=== PATIENT | male | born 1990 | race Caucasian/White ===

== ENCOUNTER 2023-02-08 16:43 | Emergency (ER) | payer BC, OTHER ==
[2023-02-08] MEDS ORDERED: NA CHLORIDE 0.9% 1,000 ML ONE ×2 (17:32→18:55)
[2023-02-08] MEDS ORDERED: ACETAMINOPHEN 500 MG TAB ONE (17:32)
[2023-02-08 17:45] LABS: Absolute Lymphocytes (CBC) 0.4 K/uL (0.7-4.9); Hematocrit 42.5 % (39.6-49.0); MCV 88.1 fL (80-100); MPV 10.2 fL (7.6-11.3); RBC Red Blood Cell Count 4.83 M/uL (4.33-5.43)
[2023-02-08 17:56] LABS: SARS-CoV-2 Antigen Rapid Res Negative (Negative)
[2023-02-08 17:59] LABS: Albumin 3.1 g/dL (3.4-5.0); Bilirubin Total 1.5 mg/dL (0.2-1.0); Protein, Total 6.8 g/dL (6.4-8.2)
[2023-02-08 18:00] LABS: Potassium 3.8 mEq/L (3.5-5.1)
--- NOTE | 2023-02-08 18:24 | RAD REPORT ---
EXAM DESCRIPTION: CTAbdomen Pelvis W Contrast - 02/08/2023 6:17 pm CLINICAL HISTORY: Abdominal pain. fever, diarrhea;Abd pain COMPARISON: No comparisonsNo comparisons TECHNIQUE: Biphasic CT imaging of the abdomen and pelvis was performed with 100 ml non-ionic IV cont rast. All CT scans are performed using dose optimization technique as appropriate and may include automated exposure control or mA/KV adjustment according to patient size. FINDINGS: The lung bases are clear. The liver contains a few small low-density lesions which are too small to fully characterize but like ly benign. Spleen, pancreas, adrenal glands and kidneys are within normal limits. No bowel obstruction, free air, free fluid or abscess. The appendix is normal. No evidence of signi ficant lymphadenopathy. No suspicious bony findings. IMPRESSION: No acute intra-abdominal or pelvic finding.
--- NOTE | 2023-02-08 18:31 | EDPHYS ---
Physician Documentation [facility] Name: Nelson Britt Age: 32 yrs Sex: Male : 1990 Arrival Date: 02/08/2023 Time: 16:43 Bed 6 Private MD: ED Physician Ivan Ojeda HPI: 02/08 17:38 This 32 yrs old Male presents to ER via Ambulatory with complaints of Fever, Nausea, rn diarrhea. 17:38 The patient reports fever. rn 17:39 Onset: The symptoms/episode began/occurred 4 day(s) ago. Modifying factors: there are rn no obvious modifying factors. Associated signs and symptoms: Pertinent positives: diarrhea, Pertinent negatives: altered mental status, chest pain, cough, headache, runny nose, skin rash, shortness of breath, swelling, vomiting. Severity of symptoms: At their worst the symptoms were moderate in the emergency department the symptoms have improved. The patient has not experienced similar symptoms in the past. Pt reports fever for 4 days, diarrhea, non-bloody, no vomiting, diarrhea starting to slow down, but has not resolved. Generalized weakness. No appetite. No abd surgeries. . Historical: - Allergies: 17:00 No Known Allergies; ss - Home Meds: 17:00 None [Active]; ss - PMHx: 17:00 None; ss - PSHx: 17:00 None; ss - Immunization history:: Client reports having NOT received the Covid vaccine. - Social history:: Smoking status: Patient reports use of chewing tobacco. - Family history:: not pertinent. - Hospitalizations: : No recent hospitalization is reported. ROS: 17:39 Constitutional: + fever Eyes: Negative for injury, pain, redness, and discharge, Neck: rn Negative for injury, pain, and swelling, Cardiovascular: Negative for chest pain, palpitations, and edema, Respiratory: Negative for shortness of breath, cough, wheezing, and pleuritic chest pain, Abdomen/GI: + diarrhea Back: Negative for injury and pain, MS/Extremity: Negative for injury and deformity, Skin: Negative for injury, rash, and discoloration, Neuro: Negative for headache, numbness, tingling, and seizure. Exam: 17:39 Constitutional: This is a well developed, well nourished patient who is awake, alert, rn and in no acute distress. Head/Face: Normocephalic, atraumatic. ENT: dry MM Cardiovascular: Regular rate and rhythm. No pulse deficits. Respiratory: No increased work of breathing, no retractions or nasal flaring. Abdomen/GI: Soft, non-tender Skin: Warm, dry, no cellulitis MS/ Extremity: Pulses equal, no cyanosis. Neuro: Awake and alert, GCS 15 Vital Signs: 16:59 BP 110 / 75; Pulse 96; Resp 16; Temp 101.4(O); Pulse Ox 98% on R/A; Weight 113.4 kg; ss Height 6 ft. 2 in. ; Pain 6/10; 17:00 BP 116 / 73; Pulse 96; Resp 16; Pulse Ox 98% on R/A; vg1 17:30 BP 116 / 71; Pulse 92; Resp 16; Pulse Ox 99% on R/A; vg1 18:42 BP 89 / 54; Pulse 76; Resp 16; Temp 97.6(O); Pulse Ox 99% ; vg1 18:43 BP 87 / 57; Pulse 68; Resp 16; Pulse Ox 96% on R/A; vg1 18:47 BP 101 / 60; Pulse 94; Resp 16; Pulse Ox 99% on R/A; vg1 20:51 BP 97 / 59; Pulse 86; Resp 16; Temp 99.1(O); Pulse Ox 100% on R/A; kd3 22:32 BP 98 / 62; Pulse 85; Resp 19; Pulse Ox 98% on R/A; kd3 22:39 BP 102 / 63; Pulse 86; Resp 16; Pulse Ox 97% on R/A; kd3 16:59 Body Mass Index 32.10 (113.40 kg, 187.96 cm) ss 16:59 Pain Scale: Adult ss MDM: 17:08 Patient medically screened. rn 18:27 Differential diagnosis: viral Infection, bacterial infection, gastroenteritis. Data rn reviewed: vital signs, nurses notes, lab test result(s), radiologic studies, CT scan, and as a result, I will discharge patient. Counseling: I had a detailed discussion with the patient and/or guardian regarding: the historical points, exam findings, and any diagnostic results supporting the discharge/admit diagnosis, lab results, radiology results, the need for outpatient follow up, to return to the emergency department if symptoms worsen or persist or if there are any questions or concerns that arise at home. Special discussion: I discussed with the patient/guardian in detail that at this point there is no indication for admission to the hospital. It is understood, however, that if the symptoms persist or worsen the patient needs to return immediately for re-evaluation. ED course: CT without acute findings, Flu B+, feels better, fever down, labs consistent with transient neutropenia and thrombocytopenia that can happen with Flu, especially with Flu B. Will dc home with prn meds and explained need to repeat bloodwork in 10-14 days to show resolution. Return precautions given and understood. . 02/08 17:17 Order name: CBC with Diff; Complete Time: 21:39 rn 02/08 17:17 Order name: CMP; Complete Time: 18:08 rn 02/08 17:17 Order name: Lipase; Complete Time: 18:08 rn 02/08 17:17 Order name: Flu; Complete Time: 18:08 rn 02/08 17:17 Order name: SARS RAPID; Complete Time: 18:08 rn 02/08 19:53 Order name: Manual Differential; Complete Time: 21:39 EDMS 02/08 17:17 Order name: CT Abd/Pelvis - IV Contrast Only; Complete Time: 18:26 rn 02/08 17:17 Order name: IV Saline Lock; Complete Time: 17:17 rn 02/08 17:17 Order name: Labs collected and sent; Complete Time: 17:17 rn Administered Medications: 17:25 Drug: NS 0.9% IV 1000 ml Route: IV; Rate: 1 bolus; Site: right antecubital; vg1 20:42 Follow up: IV Status: Completed infusion kd3 17:27 Drug: Acetaminophen PO 1000 mg Route: PO; vg1 19:06 Follow up: Response: Temperature is decreased vg1 18:50 Drug: NS 0.9% IV 1000 ml Route: IV; Rate: 1000 ml; Site: right antecubital; vg1 20:42 Follow up: IV Status: Completed infusion kd3 18:52 Drug: Oseltamivir PO 75 mg Route: PO; vg1 20:42 Follow up: Response: No adverse reaction kd3 20:42 Drug: Albumin IVPB 25 grams Volume: 100 ml; Route: IVPB; Site: right antecubital; kd3 22:49 Follow up: IV Status: Completed infusion kd3 20:42 Drug: D5-1/2 NS with KCl IV 20 mEq/L 1000 ml Route: IV; Rate: 150 ml/hr; Site: right kd3 antecubital; 22:49 Follow up: IV Status: Completed infusion kd3 20:42 Drug: Ibuprofen PO 800 mg Route: PO; kd3 22:49 Follow up: Response: No adverse reaction kd3 20:42 Drug: Diphenoxylate-Atropine PO 2 tabs Route: PO; kd3 22:49 Follow up: Response: No adverse reaction kd3 22:29 Drug: Albumin IVPB 25 grams Volume: 100 ml; Route: IVPB; Site: right antecubital; ll3 22:49 Follow up: IV Status: Completed infusion kd3 Disposition Summary: 02/08/23 18:30 Discharge Ordered Location: Home rn Problem: new rn Symptoms: have improved rn Condition: Stable rn Diagnosis - Influenza due to other identified influenza virus with gastrointestinal rn manifestations - Dehydration rn - Neutropenia, unspecified rn - Thrombocytopenia, unspecified rn Followup: rn - With: Private Physician - When: As needed - Reason: Recheck today's complaints, Re-evaluation by your physician Discharge Instructions: - Discharge Summary Sheet rn - Dehydration, Adult rn - Neutropenia rn - Influenza, Adult, [id number] rn Forms: - Medication Reconciliation Form rn - Thank You Letter rn - Antibiotic mother baby rn - Prescription Opioid Use rn - Work release form 3 Prescriptions: - ondansetron 4 mg Oral Tablet,disintegrating - take 1 tablet by ORAL route every 8 hours As needed; 20 tablet; Refills: 0, rn Product Selection Permitted - Tamiflu 75 mg Oral Capsule - take 1 tablet by ORAL route every 12 hours for 5 days; 10 tablet; Refills: 0, rn Product Selection Permitted Signatures: Dispatcher [employer] Sav Gonzales MD MD rn Blanchard, Shelby RN Bertha Tyler, RN RN [email or web address] Dennise Muniz, RN RN ll3 Teresa Sanchez, RN RN kd3 Ivan Ojeda MD MD sp4
--- NOTE | 2023-02-08 18:31 | ER ---
Nurse's Notes [facility] Name: Nelson Britt Age: 32 yrs Sex: Male : 1990 Arrival Date: 02/08/2023 Time: 16:43 Bed 6 Private MD: Diagnosis: Influenza due to other identified influenza virus with gastrointestinal manifestations;Dehydration;Neutropenia, unspecified;Thrombocytopenia, unspecified Presentation: 02/08 16:59 Chief complaint: Patient states: Nausea, diarrhea and fever that began Friday. ss Tylenol 1000 mg last taken at 0530 this morning. Coronavirus screen: Client denies travel out of the [place] in the last 14 days. Ebola Screen: Patient denies exposure to infectious person. Patient denies travel to an Ebola-affected area in the 21 days before illness onset. Initial Sepsis Screen: Does the patient meet any 2 criteria? No. Patient's initial sepsis screen is negative. Does the patient have a suspected source of infection? No. Patient's initial sepsis screen is negative. Risk Assessment: Do you want to hurt yourself or someone else? Patient reports no desire to harm self or others. Onset of symptoms was February 05, 2023. 16:59 Method Of Arrival: Ambulatory ss 16:59 Acuity: SHYLA 3 ss Historical: - Allergies: 17:00 No Known Allergies; ss - Home Meds: 17:00 None [Active]; ss - PMHx: 17:00 None; ss - PSHx: 17:00 None; ss - Immunization history:: Client reports having NOT received the Covid vaccine. - Social history:: Smoking status: Patient reports use of chewing tobacco. - Family history:: not pertinent. - Hospitalizations: : No recent hospitalization is reported. Screenin:01 Abuse screen: Denies threats or abuse. Denies injuries from another. Nutritional ss screening: No deficits noted. Tuberculosis screening: Never had TB. 17:18 [facility] ED Fall Risk Assessment (Adult) History of falling in the last 3 months, vg1 including since admission No falls in past 3 months (0 pts) Confusion or Disorientation No (0 pts) Intoxicated or Sedated No (0 pts) Impaired Gait No (0 pts) Mobility Assist Device Used No (0 pt) Altered Elimination No (0 pt) Score/Fall Risk Level 0 - 2 = Low Risk Oriented to surroundings, Maintained a safe environment, Educated pt \T\ family on fall prevention, incl call for assistance when getting out of bed, Assessed \T\ reinforced patient's understanding of fall precautions. Assessment: 17:18 General: Appears in no apparent distress. uncomfortable, Behavior is cooperative. Pain: vg1 Complains of pain in abdomen Pain currently is 2 out of 10 on a pain scale. Pain began 2-3 days ago. Neuro: Level of Consciousness is awake, alert, obeys commands, Oriented to person, place, time, situation. Cardiovascular: Patient's skin is warm and dry. Respiratory: Airway is patent Respiratory effort is even, unlabored. GI: Abdomen is round Abd is soft and non tender X 4 quads. Reports diarrhea, nausea, Patient currently denies vomiting. : No signs and/or symptoms were reported regarding the genitourinary system. EENT: No signs and/or symptoms were reported regarding the EENT system. Derm: Skin is pink, warm \T\ dry. Musculoskeletal: Circulation, motion, and sensation intact. 18:15 Reassessment: Patient appears in no apparent distress at this time. Patient and/or vg1 family updated on plan of care and expected duration. Pain level reassessed. Patient is alert, oriented x 3, equal unlabored respirations, skin warm/dry/pink. 18:40 Reassessment: Pt up for d/c, currently waiting for IV fluids to complete. vg1 18:55 Reassessment: BP 87/54 \T\ 1842 and 87/57 \T\ 1843; Provider notified of vitals. vg 1 Vital Signs: 16:59 BP 110 / 75; Pulse 96; Resp 16; Temp 101.4(O); Pulse Ox 98% on R/A; Weight 113.4 kg; ss Height 6 ft. 2 in. ; Pain 6/10; 17:00 BP 116 / 73; Pulse 96; Resp 16; Pulse Ox 98% on R/A; vg1 17:30 BP 116 / 71; Pulse 92; Resp 16; Pulse Ox 99% on R/A; vg1 18:42 BP 89 / 54; Pulse 76; Resp 16; Temp 97.6(O); Pulse Ox 99% ; vg1 18:43 BP 87 / 57; Pulse 68; Resp 16; Pulse Ox 96% on R/A; vg1 18:47 BP 101 / 60; Pulse 94; Resp 16; Pulse Ox 99% on R/A; vg1 20:51 BP 97 / 59; Pulse 86; Resp 16; Temp 99.1(O); Pulse Ox 100% on R/A; kd3 22:32 BP 98 / 62; Pulse 85; Resp 19; Pulse Ox 98% on R/A; kd3 22:39 BP 102 / 63; Pulse 86; Resp 16; Pulse Ox 97% on R/A; kd3 16:59 Body Mass Index 32.10 (113.40 kg, 187.96 cm) ss 16:59 Pain Scale: Adult ss ED Course: 16:45 Patient arrived in ED. ts1 16:48 Moises Glasgow PA is PHCP. cp 16:48 Sav Anthony MD is Attending Physician. cp 16:57 Bertha Ba RN is Primary Nurse. vg1 17:00 Triage completed. ss 17:00 Arm band placed on right wrist. ss 17:01 Patient has correct armband on for positive identification. Placed in gown. Bed in low ss position. Call light in reach. Side rails up X 1. Pulse ox on. NIBP on. 17:05 Inserted saline lock: 20 gauge in right antecubital area, using aseptic technique. zm Blood collected. 17:07 Sav Anthony MD is Attending Physician. rn 17:18 No provider procedures requiring assistance completed. vg1 17:37 SARS RAPID Sent. vg1 17:37 Flu Sent. vg1 18:19 CT Abd/Pelvis - IV Contrast Only In Process Unspecified. EDMS 19:33 Primary Nurse role handed off by Bertha Ba RN wm 19:41 Teresa Sanchez RN is Primary Nurse. kd3 19:50 Attending Physician role handed off by Sav Anthony MD sp4 19:50 Ivan Ojeda MD is Attending Physician. sp4 22:49 IV discontinued, intact, bleeding controlled, No redness/swelling at site. Pressure kd3 dressing applied. Administered Medications: 17:25 Drug: NS 0.9% IV 1000 ml Route: IV; Rate: 1 bolus; Site: right antecubital; vg1 20:42 Follow up: IV Status: Completed infusion kd3 17:27 Drug: Acetaminophen PO 1000 mg Route: PO; vg1 19:06 Follow up: Response: Temperature is decreased vg1 18:50 Drug: NS 0.9% IV 1000 ml Route: IV; Rate: 1000 ml; Site: right antecubital; vg1 20:42 Follow up: IV Status: Completed infusion kd3 18:52 Drug: Oseltamivir PO 75 mg Route: PO; vg1 20:42 Follow up: Response: No adverse reaction kd3 20:42 Drug: Albumin IVPB 25 grams Volume: 100 ml; Route: IVPB; Site: right antecubital; kd3 22:49 Follow up: IV Status: Completed infusion kd3 20:42 Drug: D5-1/2 NS with KCl IV 20 mEq/L 1000 ml Route: IV; Rate: 150 ml/hr; Site: right kd3 antecubital; 22:49 Follow up: IV Status: Completed infusion kd3 20:42 Drug: Ibuprofen PO 800 mg Route: PO; kd3 22:49 Follow up: Response: No adverse reaction kd3 20:42 Drug: Diphenoxylate-Atropine PO 2 tabs Route: PO; kd3 22:49 Follow up: Response: No adverse reaction kd3 22:29 Drug: Albumin IVPB 25 grams Volume: 100 ml; Route: IVPB; Site: right antecubital; ll3 22:49 Follow up: IV Status: Completed infusion kd3 Medication: 17:18 VIS not applicable for this client. vg1 Outcome: 18:30 Discharge ordered by . rn 22:32 Condition: stable kd3 22:48 Discharged to home ambulatory. kd3 22:48 Discharge instructions given to patient, Instructed on discharge instructions, Demonstrated understanding of instructions, Prescriptions given X 2. 22:49 Patient left the ED. kd3 Signatures: Dispatcher [employer] EDMS Sav Anthony MD MD rn Blanchard, Shelby, RN RN ss Moises Glasgow PA PA cp Garcia, Victoria, RN RN vg1 Gisselle Arenas Lynsea, RN RN ll3 Teresa Sanchez RN RN kd3 Michaela Meyer Sergey, MD MD sp4 Lovely Godwin, PAS PAS ts1
[2023-02-08] MEDS ORDERED: OSELTAMIVIR 75 MG CAP PO ONE (18:55)
[2023-02-08 19:52] LABS: Blood Morphology Comment NOT SEEN (NOT SEEN); Platelet Estimate DECR
[2023-02-08] MEDS ORDERED: DIPHENOX/ATROP SULF 1 TAB PO ONE (20:29)
[2023-02-08] MEDS ORDERED: IBUPROFEN 400 MG TAB ONE (20:29)
[2023-02-08] MEDS ORDERED: D5.45NS W/KCL 20MEQ 1,000 ML IV ONE (20:30)
[2023-02-08] MEDS ORDERED: ALBUMIN HUMAN 25% 100 ML IV ONE ×2 (20:30→22:17)
[2023-02-08] MEDS ORDERED: ALBUMIN HUMAN 25% 50 ML IV ONE (21:26)
[2023-02-08 23:24] VITALS: TEMP 99.1
[2023-02-08 23:28] VITALS: BP 102/63; O2SAT 97
== END 2023-02-08 22:49 | disposition home or self-care (01) ==
LOC: ER 16:43
DX: J10.2 Influenza due to other identified influenza virus with gastrointestinal manifestations (principal); E86.0 Dehydration; D70.9 Neutropenia, unspecified; D69.6 Thrombocytopenia, unspecified; Z20.822 Contact with and (suspected) exposure to COVID-19
CPT/HCPCS: 96365; 96361; 85025; 36415; 83690; 80053; 87804 ×2; 74177; 99285; 96366; 87811; Q9967; P9047 ×3; J7030 ×2

== ENCOUNTER 2023-02-11 13:42 | Inpatient (IN) | payer BC ==
[2023-02-11 14:58] LABS: Absolute Lymphocytes (CBC) 0.8 K/uL (0.7-4.9); Hematocrit 37.5 % (39.6-49.0); Lymphocytes % 18.6 % (15.3-44.8); MPV 10.3 fL (7.6-11.3); RBC Red Blood Cell Count 4.26 M/uL (4.33-5.43)
[2023-02-11 15:01] LABS: Protime INR 1.59
[2023-02-11 15:07] LABS: Albumin 3.1 g/dL (3.4-5.0); Potassium 3.4 mEq/L (3.5-5.1); Protein, Total 6.6 g/dL (6.4-8.2)
[2023-02-11] MEDS ORDERED: ALBUTEROL 2.5 MG/3 ML NEB SOL ONE (15:13)
[2023-02-11] MEDS ORDERED: ONDANSETRON 4 MG/2 ML VIAL ONE (15:13)
[2023-02-11] MEDS ORDERED: NA CHLORIDE 0.9% 2,000 ML ONE (15:14)
[2023-02-11] MEDS ORDERED: IPRATROPIUM BROM 0.5MG/2.5ML ONE (15:14)
[2023-02-11] MEDS ORDERED: IBUPROFEN 400 MG TAB ONE (15:15)
[2023-02-11 15:25] LABS: SARS-CoV-2 Antigen Rapid Res Negative (Negative)
--- NOTE | 2023-02-11 16:26 | RAD REPORT ---
EXAM DESCRIPTION: Supa Single View02/11/2023 4:06 pm CLINICAL HISTORY: Shortness of breath COMPARISON: none FINDINGS: The lungs appear clear of acute infiltrate. The heart is normal size IMPRESSION: No acute abnormalities displayed
--- NOTE | 2023-02-11 17:32 | RAD REPORT ---
EXAM DESCRIPTION: CT - Chest For Pe Angio - 02/11/2023 5:14 pm CLINICAL HISTORY: sob COMPARISON: None. TECHNIQUE: Dynamically enhanced axial 3 mm thick images of the chest were obtained during administra tion of 100 mL Isovue 370 IV contrast. Coronal and oblique reconstruction images were generated and r eviewed. Exam utilizes a protocol for optimal evaluation of pulmonary arterial tree. Maximum intensity projections 3D imaging was utilized All CT scans are performed using dose optimization technique as appropriate and may include automated exposure control or mA/KV adjustment according to patient size. FINDINGS: A pulmonary embolus is not seen. A thoracic aortic aneurysm is not noted. Small bilateral pleural effusions. A pericardial effusion is not seen. Mild to moderate right and mild left tree-in-bud opacities and ground-glass opacities. IMPRESSION: Negative for a pulmonary embolism. Mild to moderate right and mild left tree-in-bud and ground-glass opacities may indicate a viral or a typical pneumonia
--- NOTE | 2023-02-11 17:35 | RAD REPORT ---
EXAM DESCRIPTION: CT - Abdomen Pelvis W Contrast - 02/11/2023 5:14 pm CLINICAL HISTORY: Abdominal pain COMPARISON: January 2023 TECHNIQUE: Computed axial tomography of the abdomen pelvis was obtained. 100 cc Isovue-300 was admin istered intravenously. Oral contrast was not requested which limits evaluation of bowel and appendix All CT scans are performed using dose optimization technique as appropriate and may include automated exposure control or mA/KV adjustment according to patient size. FINDINGS: Spleen measures 17 centimeters. Liver has a homogeneous density. Pancreas, adrenals kidneys unremarkable There is no evidence of diverticulitis. Normal appendix Trace amount of free fluid within the pelvis IMPRESSION: Moderate splenomegaly
[2023-02-11] MEDS ORDERED: CEFTRIAXONE 1000 MG/VIAL ONE (18:19)
[2023-02-11] MEDS ORDERED: NA CHLORIDE 0.9% 250 ML ONE (18:20)
[2023-02-11] MEDS ORDERED: NA CHLORIDE 0.9% 50 ML ONE (18:20)
[2023-02-11] MEDS ORDERED: AZITHROMYCIN 500 MG INJ IVPB ONE (18:20)
--- NOTE | 2023-02-11 18:26 | ER ---
Nurse's Notes [facility] Name: Nelson Britt Age: 32 yrs Sex: Male : 1990 Arrival Date: 02/11/2023 Time: 13:42 Bed 7 Private MD: Diagnosis: Pneumonia, unspecified organism;Hypoxemia;Influenza due to other identified influenza virus with other respiratory manifestations;Sepsis, unspecified organism Presentation: 02/11 14:09 Chief complaint: Patient states: high fever since Friday , cough since this morning iw , sore throat , no abd pain , vomited once , was seen here Friday for same thing, had CT and fluids and was sent home with Tamiflu , was appositive for Flu B. Coronavirus screen: At this time, the client does not indicate any symptoms associated with coronavirus-19. Ebola Screen: Patient negative for fever greater than or equal to 101.5 degrees Fahrenheit, and additional compatible Ebola Virus Disease symptoms Patient denies exposure to infectious person. Patient denies travel to an Ebola-affected area in the 21 days before illness onset. No symptoms or risks identified at this time. Initial Sepsis Screen: Does the patient meet any 2 criteria? HR > 90 bpm. Does the patient have a suspected source of infection?. Risk Assessment: Do you want to hurt yourself or someone else? Patient reports no desire to harm self or others. Onset of symptoms was February 05, 2023. 14:09 Method Of Arrival: Ambulatory iw 14:09 Acuity: SHYLA 2 iw Triage Assessment: 21:54 General: Appears comfortable. Pain: Denies pain. rv Historical: - Allergies: 14:12 No Known Allergies; iw - Home Meds: 14:12 None [Active]; iw - PMHx: 14:12 None; iw - PSHx: 14:12 right knee; iw - Immunization history:: Adult Immunizations up to date. - Social history:: Smoking status: . Screenin:16 [facility] ED Fall Risk Assessment (Adult) Score/Fall Risk Level 0 - 2 = Low Risk ll1 Oriented to surroundings, Maintained a safe environment, Educated pt \T\ family on fall prevention, incl call for assistance when getting out of bed, Hourly rounding (assess needs \T\ fall precautionary measures) done. Abuse screen: Denies threats or abuse. Nutritional screening: No deficits noted. Tuberculosis screening: No symptoms or risk factors identified. Assessment: 14:47 General: Appears uncomfortable, ill, Behavior is calm, cooperative, appropriate for ll1 age. General: Reports chills for fever for feeling ill for fatigue for. Neuro: Reports weakness. Respiratory: Reports shortness of breath. GI: Reports diarrhea, nausea, vomiting. 15:16 Reassessment: No changes from previously documented assessment. Patient and/or family ll1 updated on plan of care and expected duration. Pain level reassessed. Patient is alert, oriented x 3, equal unlabored respirations, skin warm/dry/pink. 15:39 Reassessment: No changes from previously documented assessment. Patient and/or family ll1 updated on plan of care and expected duration. Pain level reassessed. 17:39 Reassessment: No changes from previously documented assessment. Patient is alert, bp oriented x 3, equal unlabored respirations, skin warm/dry/pink. 18:41 Reassessment: No changes from previously documented assessment. Patient and/or family ll1 updated on plan of care and expected duration. Pain level reassessed. 20:32 General: attempted to call report. nurse not available. will attempt again. lg3 Vital Signs: 14:09 BP 94 / 57; Pulse 107; Resp 19; Temp 100.4; Pulse Ox 88% on R/A; Weight 113.4 kg; iw Height 6 ft. 2 in. ; Pain 6/10; 15:18 BP 105 / 73; Pulse 100; Resp 20; Pulse Ox 99% on 4 lpm NC; ll1 16:01 BP 103 / 55; Pulse 96; Resp 18; Pulse Ox 96% on 3 lpm NC; cm10 17:39 BP 95 / 52; Pulse 95; Resp 16; Pulse Ox 95% ; bp 18:45 Pulse Ox 87% on R/A; ll1 18:48 Temp 98.9(O); Pulse Ox 95% on 3 lpm NC; ll1 20:31 BP 122 / 70; Pulse 88; Resp 17 S; Pulse Ox 98% on 3 lpm NC; lg3 14:09 Body Mass Index 32.10 (113.40 kg, 187.96 cm) iw 14:09 Pain Scale: Adult iw 18:45 O2 sat 87-90% RA ll1 ED Course: 13:42 Patient arrived in ED. rg4 13:45 Moises Glasgow PA is PHCP. cp 13:45 Camron Hess MD is Attending Physician. cp 14:12 Triage completed. iw 14:12 Arm band placed on. iw 14:38 Sarah Rogers, RN is Primary Nurse. ll1 15:00 Inserted saline lock: 20 gauge in right antecubital area, using aseptic technique. bp Blood collected. 15:16 Patient has correct armband on for positive identification. Bed in low position. Call ll1 light in reach. Client placed on continuous cardiac and pulse oximetry monitoring. NIBP monitoring applied. 16:08 XRAY Chest (1 view) In Process Unspecified. EDMS 17:15 CT Chest For PE Angio In Process Unspecified. EDMS 17:15 CT Abd/Pelvis - IV Contrast Only In Process Unspecified. EDMS 18:25 Aamir Anthony MD is Hospitalizing Provider. cp 21:39 No provider procedures requiring assistance completed. Patient admitted, IV remains in lg3 place. intact, No redness/swelling at site. 21:42 [place] Screen Profile Sent. lg3 21:42 Acetaminophen Sent. lg3 Administered Medications: 15:17 Drug: NS 0.9% IV (30 ml/kg) 30 ml/kg Route: IV; Rate: bolus; Site: left antecubital; ll1 18:40 Follow up: Response: No adverse reaction; IV Status: Completed infusion; IV Intake: ll1 2000ml 15:17 Drug: DuoNeb Nebulize (2.5 mg - 0.5 mg) 3 ml Route: Nebulizer; ll1 15:39 Follow up: Response: No adverse reaction ll1 15:17 Drug: Ondansetron IVP 4 mg Route: IVP; Site: left antecubital; ll1 15:38 Follow up: Response: No adverse reaction; Nausea is decreased ll1 15:17 Drug: Ibuprofen PO 800 mg Route: PO; ll1 18:40 Follow up: Response: No adverse reaction ll1 18:40 Drug: Rocephin IV 1 grams Route: IV; Rate: calculated rate; Site: left antecubital; ll1 19:16 Follow up: Response: No adverse reaction; IV Status: Completed infusion; IV Intake: [id number] 19:15 Drug: Zithromax IVPB 500 mg Route: IVPB; Infused Over: 1 hrs; Site: right antecubital; lg3 21:38 Follow up: Response: No adverse reaction; IV Status: Completed infusion; IV Intake: lg3 250ml Medication: 15:16 VIS not applicable for this client. ll1 Intake: 18:40 IV: 2000ml; Total: 2000ml. ll1 19:16 IV: 50ml; Total: 2050ml. lg3 21:38 IV: 250ml; Total: 2300ml. lg3 Outcome: 18:26 Decision to Hospitalize by Provider. cp 21:39 Admitted to Med/surg accompanied by tech, via wheelchair, room 223, Report called to [facility] 21:39 Condition: stable 21:39 Instructed on the need for admit, Demonstrated understanding of instructions. 21:54 Patient left the ED. rv Signatures: Dispatcher [employer] EDFatimah Peres, RN RN iw Moises Glasgow PA PA cp Elisha Ba rg4 Bentley Agustin RN TYLER bp Rambo Jenkins RN TYLER rv Traci Hernandes RN RN lg3 Sarah Rogers, RN TYLER ll1 Yara Meyer, RN RN cm10 Corrections: (The following items were deleted from the chart) 14:12 14:09 Pulse 107bpm; Resp 19bpm; Pulse Ox 94%; Temp 100.4F; 113.4 kg; Height 6 ft. 2 iw in.; BMI: 32.1; Pain 6/10, Adult; iw 14:14 14:09 BP 94 / 57; Pulse 107bpm; Resp 19bpm; Pulse Ox 94%; Temp 100.4F; 113.4 kg; Height iw 6 ft. 2 in.; BMI: 32.1; Pain 6/10, Adult; iw 14:19 14:09 Acuity: SHYLA 3 iw iw
--- NOTE | 2023-02-11 18:27 | EDPHYS ---
Physician Documentation [facility] Name: Nelson Britt Age: 32 yrs Sex: Male : 1990 Arrival Date: 02/11/2023 Time: 13:42 Bed 7 Private MD: ED Physician Camron Hess HPI: 02/11 14:30 This 32 yrs old Male presents to ER via Ambulatory with complaints of Fever, Cough. cp 14:30 The patient reports fever, with an emergency department temperature of 100.4 degrees cp Fahrenheit. 14:30 Associated signs and symptoms: Pertinent positives: cough, shortness of breath, cp Pertinent negatives: abdominal pain, chest pain, diarrhea, vomiting. The patient has been recently seen at the [facility] Emergency Department, last week, diagnosed with Influenza B and prescribed tamiflu. Historical: - Allergies: 14:12 No Known Allergies; iw - Home Meds: 14:12 None [Active]; iw - PMHx: 14:12 None; iw - PSHx: 14:12 right knee; iw - Immunization history:: Adult Immunizations up to date. - Social history:: Smoking status: . ROS: 14:35 Constitutional: Positive for fever. cp 14:35 Eyes: Negative for injury, pain, redness, and discharge. cp 14:35 ENT: Negative for drainage from ear(s), ear pain, sore throat, difficulty swallowing, difficulty handling secretions. 14:35 Cardiovascular: Negative for chest pain. 14:35 Respiratory: Positive for cough, shortness of breath. 14:35 Abdomen/GI: Negative for abdominal pain, vomiting, diarrhea, constipation. 14:35 Neuro: Negative for altered mental status, headache. 14:35 All other systems are negative. Exam: 14:40 Constitutional: The patient appears in no acute distress, alert, awake, cp non-diaphoretic, non-toxic, well developed, well nourished. 14:40 Head/Face: Normocephalic, atraumatic. cp 14:40 Eyes: Periorbital structures: appear normal, Conjunctiva: normal, no exudate, no injection, Sclera: no appreciated abnormality, Lids and lashes: appear normal, bilaterally. 14:40 ENT: External ear(s): are unremarkable, Nose: is normal, Mouth: Lips: moist, Oral mucosa: pink and intact, moist, Posterior pharynx: Airway: no evidence of obstruction, patent, swelling, is not appreciated, erythema, that is mild. 14:40 Neck: ROM/movement: is normal, is supple, without pain, no range of motions limitations, no meningismus, no nuchal rigidity. 14:40 Chest/axilla: Inspection: normal. 14:40 Cardiovascular: Rate: tachycardic, Rhythm: regular, Edema: is not appreciated, JVD: is not appreciated. 14:40 Respiratory: mild respiratory distress is noted, Respirations: labored breathing, is not present, shallow respirations, that is mild, Breath sounds: decreased breath sounds, that are mild, throughout, stridor, is not appreciated, wheezing: is not appreciated. 14:40 Abdomen/GI: Inspection: abdomen appears normal, Bowel sounds: active, all quadrants, Palpation: abdomen is soft and non-tender, in all quadrants. 14:40 Back: pain, is absent, ROM is normal. 14:40 Neuro: Orientation: to person, place \T\ time. Mentation: is normal, Cerebellar function: is grossly normal, Motor: moves all fours, strength is normal, Sensation: is normal. 15:00 ECG was reviewed by the Attending Physician. cp Vital Signs: 14:09 BP 94 / 57; Pulse 107; Resp 19; Temp 100.4; Pulse Ox 88% on R/A; Weight 113.4 kg; iw Height 6 ft. 2 in. ; Pain 6/10; 15:18 BP 105 / 73; Pulse 100; Resp 20; Pulse Ox 99% on 4 lpm NC; ll1 16:01 BP 103 / 55; Pulse 96; Resp 18; Pulse Ox 96% on 3 lpm NC; cm10 17:39 BP 95 / 52; Pulse 95; Resp 16; Pulse Ox 95% ; bp 18:45 Pulse Ox 87% on R/A; ll1 18:48 Temp 98.9(O); Pulse Ox 95% on 3 lpm NC; ll1 20:31 BP 122 / 70; Pulse 88; Resp 17 S; Pulse Ox 98% on 3 lpm NC; lg3 14:09 Body Mass Index 32.10 (113.40 kg, 187.96 cm) iw 14:09 Pain Scale: Adult iw 18:45 O2 sat 87-90% RA ll1 MDM: 14:21 Patient medically screened. cp 15:00 Differential diagnosis: viral Infection, bacterial infection, bronchitis, pneumonia cp gastroenteritis, meningitis, sepsis. 18:10 Data reviewed: vital signs, nurses notes, lab test result(s), EKG, radiologic studies, cp CT scan, plain films. 18:25 Management of patient was discussed with the following: Hospitalist: Tod Matute NP cp will admit patient after discussion. 18:25 Independent interpretation of the following test(s) in the Emergency Department EKG: cp See my EKG interpretation above. Post IV fluid administration reassessment for Sepsis: Client prescribed 30 mL/kg IVF. Heart: Regular rate/rhythm noted. Lungs: Noted to be clear bilaterally. Current vital signs reviewed: blood pressure remains the 90's. Counseling: I had a detailed discussion with the patient and/or guardian regarding: the historical points, exam findings, and any diagnostic results supporting the discharge/admit diagnosis, lab results, the need for further work-up and treatment in the hospital. 02/11 14:19 Order name: Blood Culture Adult (2) 02/11 14:19 Order name: CBC with Diff; Complete Time: 15:04 02/11 15:05 Interpretation: Normal except: WBC 4.20; RBC 4.26; HGB 12.5; HCT 37.5; PLT 115; YOEL% cp 75.9. 02/11 14:19 Order name: CMP; Complete Time: 16:30 02/11 16:30 Interpretation: Normal except: NA 133; K 3.4; GFR 80; AST 141; ALT 165; BILIT 2.0; CA cp 8.0; ALB 3.1; A/G 0.9. 02/11 14:19 Order name: Lactate w/ 2H reflex if indic.; Complete Time: 16:30 02/11 14:19 Order name: Protime (+inr); Complete Time: 15:04 02/11 14:19 Order name: Ptt, Activated; Complete Time: 15:04 02/11 14:56 Order name: Procalcitonin; Complete Time: 16:30 cp 02/11 15:25 Order name: SARS-COV-2 Antigen Rapid; Complete Time: 16:30 EDMS 02/11 20:00 Order name: Acetaminophen la1 02/11 20:04 Order name: [place] Screen Profile mitul 02/11 15:16 Order name: XRAY Chest (1 view); Complete Time: 16:30 cp 02/11 16:32 Order name: CT Chest For PE Angio; Complete Time: 18:04 cp 02/11 18:04 Interpretation: Report reviewed. 02/11 16:32 Order name: CT Abd/Pelvis - IV Contrast Only; Complete Time: 18:04 02/11 18:05 Interpretation: Report reviewed. 02/11 14:19 Order name: EKG; Complete Time: 14:20 iw 02/11 14:19 Order name: Accucheck; Complete Time: 15:01 iw 02/11 14:19 Order name: Cardiac monitoring; Complete Time: 15:00 iw 02/11 14:19 Order name: EKG - Nurse/Tech; Complete Time: 15:00 iw 02/11 14:19 Order name: IV Saline Lock - Large Bore; Complete Time: 14:37 iw 02/11 14:19 Order name: Labs collected and sent; Complete Time: 14:37 iw 02/11 14:19 Order name: O2 Per Protocol; Complete Time: 14:37 iw 02/11 14:19 Order name: O2 Sat Monitoring; Complete Time: 14:37 iw 02/11 14:19 Order name: Vital Signs; Complete Time: 14:37 iw EC:00 Rate is 95 beats/min. Rhythm is regular. MS interval is normal. QRS interval is normal. cp QT interval is normal. T waves are Inverted in lead aVR. Interpreted by me. Reviewed by me. Administered Medications: 15:17 Drug: NS 0.9% IV (30 ml/kg) 30 ml/kg Route: IV; Rate: bolus; Site: left antecubital; ll1 18:40 Follow up: Response: No adverse reaction; IV Status: Completed infusion; IV Intake: ll1 2000ml 15:17 Drug: DuoNeb Nebulize (2.5 mg - 0.5 mg) 3 ml Route: Nebulizer; ll1 15:39 Follow up: Response: No adverse reaction ll1 15:17 Drug: Ondansetron IVP 4 mg Route: IVP; Site: left antecubital; ll1 15:38 Follow up: Response: No adverse reaction; Nausea is decreased ll1 15:17 Drug: Ibuprofen PO 800 mg Route: PO; ll1 18:40 Follow up: Response: No adverse reaction ll1 18:40 Drug: Rocephin IV 1 grams Route: IV; Rate: calculated rate; Site: left antecubital; ll1 19:16 Follow up: Response: No adverse reaction; IV Status: Completed infusion; IV Intake: [id number] 19:15 Drug: Zithromax IVPB 500 mg Route: IVPB; Infused Over: 1 hrs; Site: right antecubital; lg3 21:38 Follow up: Response: No adverse reaction; IV Status: Completed infusion; IV Intake: lg3 250ml Disposition Summary: 02/11/23 18:26 Hospitalization Ordered Hospitalization Status: Inpatient Admission cp Provider: Aamir Anthony cp Location: Telemetry/MedSurg (Inpatient) cp Condition: Stable cp Problem: new cp Symptoms: have improved cp Bed/Room Type: Standard cp Room Assignment: 223(02/11/23 19:23) Diagnosis - Pneumonia, unspecified organism cp - Hypoxemia cp - Influenza due to other identified influenza virus with other respiratory cp manifestations - Sepsis, unspecified organism cp Forms: - Medication Reconciliation Form cp - SBAR form cp Signatures: Dispatcher [employer] EDMS America Lozada RN RN mw Fatimah Dumont RN RN iw Moises Glasgow PA PA cp Rambo Jenkins RN RN Traci Hernandes RN RN lg3 Sarah Rogers RN RN ll1 Corrections: (The following items were deleted from the chart) 15:28 14:57 SARS-COV-2 RT PCR+[id number].BRZ ordered. EDMS EDMS 18:34 18:26 Severe sepsis without septic shock cp cp 19:23 18:26 cp mw
--- NOTE | 2023-02-11 20:02 | P.HP ---
Certification for Inpatient Patient admitted to: Inpatient With expected LOS: >2 Midnights Patient will require the following post-hospital care: None Practitioner: I am a practitioner with admitting privileges, knowledge of patient current condition, hospital course, and medical plan of care. Services: Services provided to patient in accordance with Admission requirements found in Title 42 Section 412.3 of the Code of Federal Regulations Patient History Date of Service: 02/11/23 Reason for admission: Pneumonia, hypoxia History of Present Illness: 32-year-old otherwise healthy male presents the emergency department chief complaint of shortness of breath/cough. He was diagnosed with influenza B on 02/08/2023 prescribe Tamiflu and discharged. He reports his symptoms been getting worse since then, he was noted to be mildly hypoxic on room air saturating 87% on room air. He is evaluated further in the emergency department his labs are significant for white blood cell count 4.2 hemoglobin 12.5 platelets 115 sodium 133 potassium 3.4 T. bili 2.0 AST 141 ALT 165 procalcitonin 0.35 CTA of the chest was performed to rule out pulmonary believes him which showed a mild to moderate right and mild left tree-in-bud and groundglass opacity viral/atypical pneumonia. CT of the abdomen pelvis was also performed which showed moderate splenomegaly. Patient denies any abdominal pain in regards to his LFTs this is likely from his consistent use of acetaminophen. He reports has been taking approximately 4 g of Tylenol daily for the last 6 days to control his fever/chills. He was given ibuprofen for fever in the ED. Will need to be admitted for pneumonia, hypoxia, influenza. - Past Medical/Surgical History -: None -: none Psychosocial/ Personal History: Employed in [employer]. - Family History Family History: Reviewed- Non-Contributory - Social History Smoking Status: Never smoker Alcohol use: Yes CD- Drugs: No Caffeine use: Yes Place of Residence: Home Review of Systems 10-point ROS is otherwise unremarkable General: Fever, Chills Respiratory: Cough, Shortness of Breath Physical Examination - Physical Exam General: Alert, In no apparent distress, Oriented x3 HEENT: Atraumatic, PERRLA, Mucous membr. moist/pink, EOMI, Sclerae nonicteric Neck: Supple, 2+ carotid pulse no bruit, No LAD, Without JVD or thyroid abnormality Respiratory: Clear to auscultation bilaterally, Normal air movement Cardiovascular: Regular rate/rhythm, Normal S1 S2 Capillary refill: <2 Seconds Gastrointestinal: Normal bowel sounds, No tenderness Musculoskeletal: No tenderness Integumentary: No rashes Neurological: Normal speech, Normal strength at 5/5 x4 extr, Normal tone, Normal affect - Studies Laboratory Data (last 24 hrs) 02/11/23 14:40: PT 17.5 H, INR 1.59, APTT 36.2 02/11/23 14:40: Sodium 133 L, Potassium 3.4 L, BUN 17, Creatinine 1.23, Glucose 96, Total Bilirubin 2.0 H, AST 141 H, ALT 165 H, Alkaline Phosphatase 59 02/11/23 14:40: WBC 4.20 L, Hgb 12.5 L, Hct 37.5 L, Plt Count 115 L Assessment and Plan - Plan Assessment: Acute hypoxic respiratory failure secondary to bilateral pneumoniainfluenza B Severe sepsis secondary to above-likely viral Elevated LFT/INR likely secondary to acetaminophen use/sepsis Plan: Acute hypoxic respiratory failure secondary to bilateral pneumoniainfluenza B Continue supplemental oxygen as needed, will cover with vancomycin/Levaquin/Tamiflu. Incentive spirometry, as needed nebulizer treatments. Blood cultures obtained. Severe sepsis secondary to above-likely viral SIRS criteria are present, source of infection confirmed with CT bilateral pneumonia, INR is elevated which is likely multifactorial but does meet criteria for severe sepsis. There is concern for possible superimposed bacterial infection as well. Elevated LFT/INR likely secondary to acetaminophen use/sepsis We will obtain ultrasound of the liver, no abdominal pain or tenderness noted on exam. We will measure acetaminophen level, patient reports taking approximately 4-6 grams of Tylenol daily for the last 6 days, last dose was today around noon. Acetaminophen level pending. DVT PPX:Lovenox Code status:Full Discharge Plan: Home Plan to discharge in: 72 Hours - Advance Directives Does patient have a Living Will: No Does patient have a Durable POA for Healthcare: No - Code Status/Comfort Care Code Status Assessed: Yes (Full code) Critical Care: No Time Spent Managing Pts Care (In Minutes): 55
[2023-02-11] MEDS ORDERED: BENZONATATE 100 MG CAP PO PRN (21:42)
[2023-02-11] MEDS ORDERED: VANCOMYCIN 1 GM in NA CHLORIDE 0.9% 250 ML IVPB SCH (21:42)
[2023-02-11] MEDS ORDERED: D5W IV SCH (22:00)
[2023-02-11] MEDS ORDERED: ACETYLCYSTEINE IV SCH ×2 (22:00→23:00)
[2023-02-11] MEDS ORDERED: D5W IV ONE (22:05)
[2023-02-11] MEDS ORDERED: ACETYLCYSTEINE IV ONE (22:05)
[2023-02-11] MEDS: Ringers Lactate 1,000 ML IV SCH (22:28)
[2023-02-11] MEDS: OSELTAMIVIR 75 MG CAP PO SCH (22:28)
[2023-02-11] MEDS ORDERED: WATER IV SCH (23:00)
[2023-02-11] MEDS ORDERED: VANCOMYCIN 2 GM in NA CHLORIDE 0.9% 500 ML IVPB ONE (23:00)
[2023-02-11] MEDS ORDERED: DEXTROSE 5% IV SCH (23:00)
[2023-02-11] MEDS ORDERED: Acetylcysteine 6000mg/30mL IV ONE (23:07)
[2023-02-11] MEDS ORDERED: D5W 250 ML IV ONE (23:08)
[2023-02-11 23:14] VITALS: BMI 32.1
[2023-02-12] MEDS ORDERED: ONDANSETRON 4 MG/2 ML VIAL IV PRN (00:34)
[2023-02-12] MEDS ORDERED: ACETYLCYSTEINE IV SCH ×3 (03:00→12:00)
[2023-02-12] MEDS ORDERED: D5W IV SCH ×3 (03:00→12:00)
[2023-02-12 03:44] LABS: Protime INR 1.45
[2023-02-12 03:46] LABS: Absolute Lymphocytes (CBC) 0.7 K/uL (0.7-4.9); Hematocrit 32.4 % (39.6-49.0); MPV 9.9 fL (7.6-11.3); RBC Red Blood Cell Count 3.73 M/uL (4.33-5.43)
[2023-02-12 04:07] LABS: Albumin 2.5 g/dL (3.4-5.0); Bilirubin Total 1.6 mg/dL (0.2-1.0); Potassium 3.2 mEq/L (3.5-5.1); Protein, Total 5.7 g/dL (6.4-8.2)
[2023-02-12] MEDS ORDERED: IBUPROFEN 400 MG TAB PO ONE (05:10)
[2023-02-12] MEDS: Ringers Lactate 1,000 ML IV SCH ×3 (05:42→21:42)
[2023-02-12] MEDS: ALBUTEROL 2.5 MG/3 ML NEB SOL NEB PRN ×2 (06:39→17:57)
--- NOTE | 2023-02-12 07:37 | RAD REPORT ---
EXAM DESCRIPTION: US - Liver Only - 02/12/2023 1:10 am CLINICAL HISTORY: Elevated LFT COMPARISON: No comparisons FINDINGS: The liver demonstrates diffuse fatty infiltration.No focal liver lesion or intrahepatic bi liary dilatation.No evidence of portal vein thrombosis. Common bile duct measures 4 mm. There is small gallbladder stone. Spleen is enlarged measuring 16 cm. IMPRESSION: Diffuse fatty liver is present. No pathologic biliary dilatation. Cholelithiasis. Mild splenomegaly.
[2023-02-12] MEDS ORDERED: ACETYLCYSTEINE IV ONE (08:00)
[2023-02-12] MEDS ORDERED: D5W IV ONE (08:00)
[2023-02-12] MEDS ORDERED: VANCOMYCIN 2 GM in NA CHLORIDE 0.9% 500 ML IVPB SCH (09:00)
[2023-02-12] MEDS ORDERED: Levofloxacin 750mg IV 750 MG/150 ML BAG IV SCH (09:00)
[2023-02-12] MEDS ORDERED: POTASSIUM CL SA 10 MEQ TAB PO ONE ×2 (09:00→22:00)
[2023-02-12] MEDS: OSELTAMIVIR 75 MG CAP PO SCH ×2 (09:54→20:14)
[2023-02-12] MEDS: ENOXAPARIN 40 MG/0.4 ML SQ SCH (09:54)
[2023-02-12] MEDS: CEFTRIAXONE 1,000 MG in NA CHLORIDE 0.9% 50 ML IVPB SCH (09:54)
[2023-02-12] MEDS: AZITHROMYCIN IV 500 MG in NA CHLORIDE 0.9% 250 ML IVPB SCH (09:55)
--- NOTE | 2023-02-12 12:17 | P.CNS ---
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 - Social History Alcohol use: Yes CD- Drugs: No Caffeine use: Yes Place of Residence: Home Review of Systems 10-point ROS is otherwise unremarkable Physical Examination Temp Pulse Resp BP Pulse Ox 97.6 F 92 H 18 91/56 L 97 02/12/23 08:00 02/12/23 08:00 02/12/23 08:00 02/12/23 08:00 02/12/23 08:00 General: Alert, In no apparent distress, Oriented x3 HEENT: Atraumatic Neck: Supple Respiratory: Clear to auscultation bilaterally Cardiovascular: No edema, Regular rate/rhythm Laboratory Data (last 24 hrs) 02/11/23 14:40: PT 17.5 H, INR 1.59, APTT 36.2 02/11/23 14:40: Sodium 133 L, Potassium 3.4 L, BUN 17, Creatinine 1.23, Glucose 96, Total Bilirubin 2.0 H, AST 141 H, ALT 165 H, Alkaline Phosphatase 59 02/11/23 14:40: WBC 4.20 L, Hgb 12.5 L, Hct 37.5 L, Plt Count 115 L - Problems (1) Atypical pneumonia Current Visit: Yes Status: Acute Plan: Patient is 32 years of age previously healthy no significant past medical history admitted with fever chills some nonspecific changes on the CT scan most likely he has an atypical pneumonia of levofloxacin changed to Rocephin and Zithromax IV abnormal LFTs would also be consistent with an atypical process example mycoplasma pneumonia function tests are improving DC vancomycin once afebrile oxygenation satisfactory discharge home on cephalosporin and Zithromax
[2023-02-12 14:17] LABS: Hepatitis A Ab Total Nonreactive (Nonreactive); Hepatitis B Core Ab, Total Nonreactive (Nonreactive); Hepatitis B Core IgM Nonreactive (Nonreactive); Hepatitis B Surface Ab - Quant 4.56 mIU/mL (<8.0); Hepatitis B surface AG Interp. Nonreactive (Nonreactive); Hepatitis C Virus Ab Nonreactive (Nonreactive)
--- NOTE | 2023-02-12 14:23 | P.CNS ---
Date of Consult: 02/12/23 Reason for Consult: influenza, PNA Chief Complaint: Pneumonia, hypoxia History of Present Illness: Patient is a 32 yo male with no significant medical history who presented to the ED with complaints of SOB and cough. He originally presented to the ED on 02/08 during which he was diagnosed with influenze B and sent home on Tamiflu. He returned to the ED due to worsening symptoms and fever and was found to be mildly hypoxic. He reports he has been taking about 4g tylenol daily to control his fever. ALT 165, AST 141, WBC 4.2, Plt 115. CTA Chest was obtained which showed Mild to moderate right and mild left tree-in-bud and ground-glass opacities may indicate a viral or atypical pneumonia. CT abdomen revealed moderate splenomegaly. "Negative for a pulmonary embolism. Mild to moderate right and mild left tree-in-bud and ground-glass opacities may indicate a viral or atypical pneumonia." Allergies No Known Allergies Allergy (Unverified 02/11/23 21:40) Home medications list reviewed: Yes - Past Medical/Surgical History -: None -: none Psychosocial/ Personal History: Employed in [employer]. - Social History Smoking Status: Never smoker Alcohol use: Yes CD- Drugs: No Caffeine use: Yes Place of Residence: Home Review of Systems 10-point ROS is otherwise unremarkable General: Fever Respiratory: Shortness of Breath Physical Examination Temp Pulse Resp BP Pulse Ox 98.1 F 83 16 125/72 98 02/12/23 12:00 02/12/23 12:00 02/12/23 12:00 02/12/23 12:00 02/12/23 12:00 General: Alert, In no apparent distress, Oriented x3 HEENT: Atraumatic, Normocephalic Neck: Supple, JVD not distended Respiratory: Clear to auscultation bilaterally, Normal air movement, Other (4 L NC) Cardiovascular: No edema, Normal pulses, Regular rate/rhythm Gastrointestinal: Normal bowel sounds, Soft and benign, No tenderness Musculoskeletal: No clubbing, No swelling Integumentary: No rashes, No breakdown Neurological: Normal gait, Normal speech, Normal tone, Normal affect Laboratory Data - Reviewed Microbiology Data - Reviewed Imagings Data: - CTA Chest 02/11: "Negative for a pulmonary embolism. Mild to moderate right and mild left tree-in-bud and ground-glass opacities may indicate a viral or atypical pneumonia." - CT abdomen 02/11: "Moderate splenomegaly" - Liver ultrasound 02/12: "Diffuse fatty liver is present. No pathologic biliary dilatation. Cholelithiasis. Mild splenomegaly." Conclusions/Impression: Problem List Influenza B Atypical Pneumonia Leukopenia Thrombocytopenia Influenza B Atypical Pneumonia - On Tamiflu - On Azithromycin and Ceftriaxone (started 02/12) - Pulmonology on case - Patient is currently on 4L NC. Patient with leukopenia and thrombocytopenia - Originally presented to ED with WBC 1.4 and plt 99 - Tmax 101.3 this morning - Patient has been experiencing high fevers for the past 7+ days. Patient reports temps up to 104 at home and was taking large doses of tylenol to reduce fever. - Agreeable to run viral panel including HIV, CMV, hepatitis Recommendations - Influeza B: Continue tamiflu x 5 days - Atypical pneumonia: Continue antibiotics per pulmonology - follow up with lab/culture reports - Supportive care and nutritional support as needed - Monitor WBC and fever trends ID will follow patient as needed. Case discussed with Rg Kovacs. Thank you Dr. Crowley for this interesting consult.
[2023-02-12] MEDS ORDERED: CEFTRIAXONE 1,000 MG in NA CHLORIDE 0.9% 50 ML IVPB SCH (18:00)
--- NOTE | 2023-02-12 18:21 | P.PN ---
Subjective Date of Service: 02/12/23 Chief Complaint: Pneumonia, hypoxia This morning, he reports the his symptoms are moderately controlled. He has been having intermittent fevers and chills overnight. Pulse oximetry readings were low on admission, and he was on 5 L nasal cannula this morning. He reports shortness of breath and dry cough. He denies any chest pain or palpitations. Review of Systems 10-point ROS is otherwise unremarkable General: Chills, Sweats Respiratory: Cough, Shortness of Breath Physical Examination - Vital Signs Temperature: 100.5 F Blood Pressure: 121/81 Pulse: 90 Respirations: 18 Pulse Ox (%): 100 - Physical Exam General: Alert, In no apparent distress, Oriented x3 HEENT: Atraumatic, Sclerae nonicteric Neck: JVD not distended Respiratory: Diminished, Rhonchi/gurgles (scattered) Cardiovascular: No edema, Regular rate/rhythm, Normal S1 S2, No gallops, No rubs, No murmurs Gastrointestinal: Normal bowel sounds, Soft and benign, Non-distended, No tenderness, No rebound, No guarding Musculoskeletal: No clubbing Integumentary: No rashes Neurological: Normal speech, Normal affect Assessment And Plan - Plan # Acute Hypoxic Respiratory Failure - likely secondary to Influenza B/Atypical Pneumonia - Evaluation thus far: - Procalcitonin = 0.35 - Influenza B = positive - Mononuclosis, COVID-19 = negative - Chest x-ray = "no acute abnormalities displayed" - CT chest angiogram = "negative for a pulmonary embolism. Mild to moderate right and mild left tree-in-bud and ground-glass opacities may indicate a viral or atypical pneumonia." - Management plan: - Consulted Pulmonary Medicine - recommendations appreciated - Consulted Respiratory Therapy - Supplemental oxygen to maintain SpO2 > 92% - Continue vancomycin (to cover MRSA in the setting of influenza) + levofloxacin - Continue oseltamivir - PRN benzonatate, guaifenesin - Encouraged incentive spirometry - Isolation precautions # Severe Viral Sepsis likely secondary to Influenza B/Atypical Pneumonia He met SIRS criteria based on temperature > 100.9 F, HR > 90 bpm, and WBC < 4,000 and the suspected source is pulmonary. Severe sepsis is suspected due to concern for tissue hypoperfusion/organ dysfunction based on coagulopathy (INR > 1.5). - Consulted Infectious Diseases and spoke with Dr. Mack - recommendations appreciated - Recommended hepatitis panel, HIV, CMV - verbal consent obtained for HIV testing - Sepsis order set was initiated - Initial Lactate was 1.4 - Blood cultures drawn - Broad spectrum antibiotics started: Vancomycin + Levofloxacin - In regards to fluids: - 30 mL/kg of IV fluids was not administered given SBP > 90, MAP > 65, lactic acid < 4 # Suspected Acute Hepatitis vs Acute Drug-Induced Liver Injury # Fatty Liver Disease with Splenomegaly # Cholelithiasis Differential diagnoses include, but are not limited to, alcoholic hepatitis (denies alcohol use), drug-induced liver injury, infectious hepatitis (i.e. Hepatitis A, B, or C, HIV). He reports taking acetaminophen 1000 mg [id number] x 5 days. - Gastroenterology consulted and LOCOMOTIVE ENGINEER Juju spoke with Dr. Chambers - recommendations appreciated - S/P acetylcysteine - Radiology: - CT abdomen/pelvis = "moderate splenomegaly" - US liver = "diffuse fatty liver is present. No pathologic biliary dilatation. Cholelithiasis. Mild splenomegaly." - Avoid hepatotoxic medications - Limit Acetaminophen - Acetaminophen level = <2.5 - Ordered HAV IgM, HBsAg, HbsAb, HBcAb, and HCV serologies - Ordered HIV testing - Verbal permission for testing obtained Pepe Crowley M.D.
[2023-02-12] MEDS ORDERED: guaiFENesin 100 MG/5 ML UCUP PO PRN (18:28)
--- NOTE | 2023-02-12 19:10 | EKG ---
Test Date: 2023-02-11 Test Time: 14:52:48 Python Django Developer: BP MEASUREMENT RESULTS: Intervals: Rate: 95 ME: 146 QRSD: 88 QT: 340 QTc: 427 [place]: P: 19 ME: 146 QRS: 47 T: 34 INTERPRETIVE STATEMENTS: Sinus rhythm with occasional premature ventricular complexes Otherwise normal ECG No previous ECG available for comparison Electronically Signed On 02-12-23 19:08:56 CDT by Rivera Javier
[2023-02-13 03:40] LABS: Protime INR 1.53
[2023-02-13 03:41] LABS: Lymphocytes % 29.1 % (15.3-44.8); MCV 87.2 fL (80-100); MPV 9.3 fL (7.6-11.3); RBC Red Blood Cell Count 3.56 M/uL (4.33-5.43)
[2023-02-13 04:05] LABS: Albumin 2.4 g/dL (3.4-5.0); Bilirubin Direct 0.7 mg/dL (0-0.2); Bilirubin Total 1.2 mg/dL (0.2-1.0); Potassium 3.8 mEq/L (3.5-5.1); Protein, Total 5.7 g/dL (6.4-8.2)
[2023-02-13] MEDS ORDERED: SODIUM CHLORIDE 0.9% 10ML INJ IV PRN (05:04)
[2023-02-13] MEDS: Ringers Lactate 1,000 ML IV SCH ×4 (05:29→21:42)
[2023-02-13] MEDS ORDERED: POTASSIUM CL SA 10 MEQ TAB PO ONE ×2 (06:00→20:00)
[2023-02-13] MEDS ORDERED: PANTOPRAZOLE 40 MG INJ IVP ONE (06:00)
[2023-02-13 06:42] VITALS: O2SAT 96
[2023-02-13] MEDS: CEFTRIAXONE 1,000 MG in NA CHLORIDE 0.9% 50 ML IVPB SCH (08:59)
[2023-02-13] MEDS: ENOXAPARIN 40 MG/0.4 ML SQ SCH (08:59)
[2023-02-13] MEDS: AZITHROMYCIN IV 500 MG in NA CHLORIDE 0.9% 250 ML IVPB SCH (08:59)
[2023-02-13] MEDS: OSELTAMIVIR 75 MG CAP PO SCH ×2 (08:59→21:20)
--- NOTE | 2023-02-13 09:09 | P.PN ---
Date of Service: 02/13/23 Chief Complaint: SOB, fever Subjective: Improving. Patient seen and examined at bedside. O2 requirements to 1.5L from 4L NC. Denies any new or worsening complaints. Reports feeling better. No acute events reported overnight. Physical Examination Temp Pulse Resp BP Pulse Ox 98.6 F 132 H 19 121/81 97 02/13/23 08:00 02/13/23 08:00 02/13/23 08:00 02/13/23 08:00 02/13/23 08:00 General: Alert, In no apparent distress, Oriented x3 HEENT: Atraumatic, Normocephalic Neck: Supple, JVD not distended Respiratory: Clear to auscultation bilaterally, Normal air movement, 2 L NC Cardiovascular: No edema, Normal pulses, Regular rate/rhythm Gastrointestinal: Normal bowel sounds, Soft and benign, No tenderness Musculoskeletal: No clubbing, No swelling Integumentary: No rashes, No breakdown Neurological: Normal gait, Normal speech, Normal tone, Normal affect Laboratory Data - Reviewed Microbiology Data - Reviewed Imagings Data: - CT abdomen 02/11: "Moderate splenomegaly" - Liver ultrasound 02/12: "Diffuse fatty liver is present. No pathologic biliary dilatation. Cholelithiasis. Mild splenomegaly." Medication List: Reviewed Assessment and Plan Problem List Influenza B Atypical Pneumonia Leukopenia Thrombocytopenia, resolved Influenza B Atypical Pneumonia - On Tamiflu - On Azithromycin and Ceftriaxone (started 02/12) - Pulmonology on case - XR Chest 02/11: "The lungs appear clear of acute infiltrate. The heart is normal size. No acute abnormalities displayed." - CTA Chest 02/11: "Negative for a pulmonary embolism. Mild to moderate right and mild left tree-in-bud and ground-glass opacities may indicate a viral or atyp ical pneumonia." Patient has been experiencing high fevers for the past 7+ days. Patient reports temps up to 104 at home and was taking large doses of tylenol to reduce fever. LFTs trending down. Originally presented to ED with leukopenia WBC 1.4 and thrombocytopenia plt 99. - Tmax 100.5 F within the past 24 hours. - Agreeable to run viral panel including HIV, CMV, hepatitis. Pending. - Blood cultures 02/11: No growth to date - Nasal swab pending - Leukopenia (WBC 3.5) Recommendations - Influenza B: Continue Tamiflu x 5 days (started 02/11) - Atypical pneumonia: Continue Azithromycin and Ceftriaxonefor now (started 02/12) - follow up with labs and nasal culture reports - Supportive care and nutritional support as needed - Monitor WBC and fever trends ID will follow patient as needed. Case discussed with Isabelle Kovacs
--- NOTE | 2023-02-13 17:18 | P.PN ---
Subjective Date of Service: 02/13/23 Chief Complaint: Pneumonia, hypoxia This morning, he appears to be improving. He is still requiring supplemental oxygen, but his oxygen requirements have improved from 5 L yesterday to 2.5 L this morning. He had one low grade fever of 100.5 F overnight. He reports shortness of breath and dry cough. He denies any chest pain or palpitations. Review of Systems 10-point ROS is otherwise unremarkable General: Chills Respiratory: Cough, Shortness of Breath Physical Examination - Vital Signs Temperature: 99.3 F Blood Pressure: 119/77 Pulse: 97 Respirations: 21 Pulse Ox (%): 98 Assessment And Plan - Plan - Physical Exam General: Alert, In no apparent distress, Oriented x3 HEENT: Atraumatic, Sclerae nonicteric Neck: JVD not distended Respiratory: Diminished, Rhonchi/gurgles (scattered) Cardiovascular: No edema, Regular rate/rhythm, No murmurs Gastrointestinal: Normal bowel sounds, Soft, Non-distended, No tenderness Musculoskeletal: No clubbing Integumentary: No rashes Neurological: Normal speech, Normal affect # Acute Hypoxic Respiratory Failure - likely secondary to Influenza B/Atypical Pneumonia - Evaluation thus far: - Procalcitonin = 0.35 - Influenza B = positive - Mononuclosis, COVID-19 = negative - Chest x-ray = "no acute abnormalities displayed" - CT chest angiogram = "negative for a pulmonary embolism. Mild to moderate right and mild left tree-in-bud and ground-glass opacities may indicate a viral or atypical pneumonia." - Management plan: - Consulted Pulmonary Medicine - recommendations appreciated - Consulted Respiratory Therapy - Supplemental oxygen to maintain SpO2 > 92% - Continue vancomycin (to cover MRSA in the setting of influenza) + levofloxacin -> switched to ceftriaxone + azithromycin per Pulm - MRSA nasal swab requested - Continue oseltamivir - PRN benzonatate, guaifenesin - Encouraged incentive spirometry - Isolation precautions # Severe Viral Sepsis likely secondary to Influenza B/Atypical Pneumonia He met SIRS criteria based on temperature > 100.9 F, HR > 90 bpm, and WBC < 4,000 and the suspected source is pulmonary. Severe sepsis is suspected due to concern for tissue hypoperfusion/organ dysfunction based on coagulopathy (INR > 1.5). - Consulted Infectious Diseases and spoke with Dr. Giron - recommendations appreciated - Recommended hepatitis panel, HIV, CMV - verbal consent obtained for HIV testing - All tests negative thus far, except CMV (pending) - Sepsis order set was initiated - Initial Lactate was 1.4 - Blood cultures drawn - Broad spectrum antibiotics started: Vancomycin + Levofloxacin -> switched to ceftriaxone + azithromycin per Pulm - In regards to fluids: - 30 mL/kg of IV fluids was not administered given SBP > 90, MAP > 65, lactic acid < 4 # Suspected Acute Hepatitis vs Acute Drug-Induced Liver Injury # Fatty Liver Disease with Splenomegaly # Cholelithiasis Differential diagnoses include, but are not limited to, alcoholic hepatitis (denies alcohol use), drug-induced liver injury, infectious hepatitis (i.e. Hepatitis A, B, or C, HIV). He reports taking acetaminophen 1000 mg [id number] x 5 days. - Gastroenterology consulted and FLEX O WRITER OPERATOR Juju spoke with Dr. Chambers - recommendations appreciated - S/P acetylcysteine - Radiology: - CT abdomen/pelvis = "moderate splenomegaly" - US liver = "diffuse fatty liver is present. No pathologic biliary dilatation. Cholelithiasis. Mild splenomegaly." - Avoid hepatotoxic medications - Limit Acetaminophen - Acetaminophen level = <2.5 - Ordered HAV IgM, HBsAg, HbsAb, HBcAb, and HCV serologies = negative - May benefit from HBV vaccine as an outpatient - Ordered HIV testing = negative - Verbal permission for testing obtained Pepe Crowley M.D.
[2023-02-14] MEDS: Ringers Lactate 1,000 ML IV SCH (04:00)
[2023-02-14 06:10] LABS: Absolute Lymphocytes (CBC) 1.2 K/uL (0.7-4.9); Hematocrit 33.1 % (39.6-49.0); Lymphocytes % 25.9 % (15.3-44.8); MCV 87.3 fL (80-100); MPV 9.6 fL (7.6-11.3)
[2023-02-14 06:15] LABS: Protime INR 1.54
[2023-02-14 06:28] LABS: Albumin 2.5 g/dL (3.4-5.0); Bilirubin Direct 0.5 mg/dL (0-0.2); Potassium 3.8 mEq/L (3.5-5.1); Protein, Total 5.6 g/dL (6.4-8.2)
--- NOTE | 2023-02-14 06:54 | ECHO ---
HEIGHT: 6 ft 2 in WEIGHT: 250 lb 0 oz DATE OF STUDY: 02/13/[address]: Pepe Crowley MD 2-DIMENSIONAL: YES M.MODE: YES DOPPLER: YES COLOR FLOW: YES TDS: PORTABLE: YES DEFINITY: BUBBLE STUDY: DIAGNOSIS: SUSPECT PERICARDIAL EFFUSION CARDIAC HISTORY: CATHERIZATION: NO SURGERY: NO PROSTHETIC VALVE: NO PACEMAKER: NO MEASUREMENTS (cm) DIASTOLIC (NORMALS) SYSTOLIC (NORMALS) IVSd 1.0 (0.6-1.2) LA Diam 2.1 (1.9-4.0) LVEF 69% LVIDd 5.1 (3.5-5.7) LVIDs 3.1 (2.0-3.5) %FS 39% LVPWd 1.1 (0.6-1.2) Ao Diam 3.1 (2.0-3.7) 2 DIMENSIONAL ASSESSMENT: RIGHT ATRIUM: NORMAL LEFT ATRIUM: NORMAL RIGHT VENTRICLE: NORMAL LEFT VENTRICLE: NORMAL TRICUSPID VALVE: NORMAL MITRAL VALVE: TRACE MITRAL REGURGITATION PULMONIC VALVE: NORMAL AORTIC VALVE: NORMAL PERICARDIAL EFFUSION: NONE AORTIC ROOT: NORMAL LEFT VENTRICULAR WALL MOTION: NORMAL DOPPLER/COLOR FLOW: TRACE MITRAL REGURGITATION COMMENTS: 1. NORMAL LEFT VENTRICULAR EJECTION FRACTION 60-65% 2. NORMAL WALL MOTION 3. TRACE MITRAL REGURGITATION 4. NO PERICARDIAL EFFUSION IS SEEN TECHNOLOGIST: TEMI LOFTON
[2023-02-14 08:15] VITALS: BP 128/74; TEMP 97.4
[2023-02-14] MEDS: CEFTRIAXONE 1,000 MG in NA CHLORIDE 0.9% 50 ML IVPB SCH (08:55)
[2023-02-14] MEDS: AZITHROMYCIN IV 500 MG in NA CHLORIDE 0.9% 250 ML IVPB SCH (08:55)
[2023-02-14] MEDS: OSELTAMIVIR 75 MG CAP PO SCH (08:55)
[2023-02-14] MEDS: ENOXAPARIN 40 MG/0.4 ML SQ SCH (08:57)
[2023-02-14] MEDS ORDERED: NA CHLORIDE 0.9% 250 ML ONE (08:58)
--- NOTE | 2023-02-14 08:58 | P.DS ---
Admission Date: 02/11/23 Discharge Date: 02/14/23 Disposition: ROUTINE DISCHARGE Discharge Condition: GOOD Reason for Admission: Pneumonia, hypoxia Consultations: 1. Pulmonology 2. 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 Nelson Britt is a 32 year old male with no reported past medical history who was admitted to the [facility] on 02/11/2023 for hypoxia and shortness of breath. He was admitted to the Medicine service. Upon further evaluation, he tested positive for Influenza B. His chest x-ray revealed, "no acute abnormalities displayed." His CT chest angiogram revealed, "negative for a pulmonary embolism. Mild to moderate right and mild left tree-in-bud and ground-glass opacities may indicate a viral or atypical pneumonia." He was found to be hypoxic and was started on supplemental oxygen. He was placed on oseltamivir and IV antibiotics and, over the course of his hospitalization, his symptoms improved significantly. He was weaned off of oxygen and, this morning, he was able to ambulate around the nursing station maintaining SpO2 readings of 98 % on room air. Dr. Giron has cleared him for discharge with outpatient follow-up. He recommended that he be discharged with azithromycin 250 mg daily x 5 days. He completed a 5-day course of oseltamivir (he had started prior to admission). Incidentally, he was found to have elevated liver enzymes. It was thought that he may have accidentally consumed too much acetaminophen. Gastroenterology was consulted and Dr. Chambers was notified. He recommended giving acetylcysteine. Over the course of his hospitalization, his liver enzymes would improve; however, they would not normalize. His CT abdomen/pelvis revealed, "moderate splenomegaly." His liver ultrasound revealed, "diffuse fatty liver is present. No pathologic biliary dilatation. Cholelithiasis. Mild splenomegaly." Given these findings, it is thought that he likely had an underlying liver disease prior to this episode. It would seem most likely that he has SAGE. He was advised on the importance of weight loss and to follow this up with his PCP and Gastroenterology for further evaluation. He verbalized understanding and agreed to make these appointments. On 02/14/2023, he was seen on morning rounds and deemed medically stable for discharge. He was discharged with instructions to schedule follow-up appointments with his PCP and with Gastroenterology (Dr. Chambers). He was provided prescriptions for azithromycin and benzonatate. He and his mother were given the opportunity to ask questions and reported no further questions. Furthermore, all questions were answered to the best of my ability. A copy of this discharge summary will be sent to the above providers to facilitate continuity of care. Today, I personally spent 25 minutes on his case, of which greater than 50% of the time was spent in patient education, counseling, and coordination of care as described above. - Physical Exam General: Alert, In no apparent distress, Oriented x3 HEENT: Atraumatic, Sclerae nonicteric Neck: JVD not distended Respiratory: Diminished, but clear to auscultation without wheezes, rhonchi, or rales Cardiovascular: No edema, Regular rate/rhythm, No murmurs Gastrointestinal: Normal bowel sounds, Soft, Non-distended, No tenderness Musculoskeletal: No clubbing Integumentary: No rashes Neurological: Normal speech, Normal affect Vital Signs/Physical Exam: Temp Pulse Resp BP Pulse Ox 97.4 F 82 18 128/74 98 02/14/23 08:00 02/14/23 08:00 02/14/23 08:00 02/14/23 08:00 02/14/23 08:00 Laboratory Data at Discharge: WBC 4.70 thou/uL (4.3-10.9) 02/14/23 05:43 Hgb 11.3 g/dL (13.6-17.9) L 02/14/23 05:43 Hct 33.1 % (39.6-49.0) L 02/14/23 05:43 Plt Count 209 thou/uL (152-406) 02/14/23 05:43 PT 16.9 SECONDS (9.5-12.5) H 02/14/23 05:43 INR 1.54 02/14/23 05:43 APTT 36.2 SECONDS (24.3-36.9) 02/11/23 14:40 Sodium 136 mEq/L (136-145) 02/14/23 05:43 Potassium 3.8 mEq/L (3.5-5.1) 02/14/23 05:43 BUN 9 mg/dL (7-18) 02/14/23 05:43 Creatinine 0.79 mg/dL (0.70-1.30) 02/14/23 05:43 Glucose 100 mg/dL (74-106) 02/14/23 05:43 Total Bilirubin 1.0 mg/dL (0.2-1.0) 02/14/23 05:43 AST 64 U/L (15-37) H 02/14/23 05:43 ALT 103 U/L (16-61) H 02/14/23 05:43 Alkaline Phosphatase 52 U/L (45-117) 02/14/23 05:43 Home Medications: RX: Azithromycin Tab [Zithromax*] 250 mg PO DAILY 5 Days #5 tab 02/14/23 RX: Benzonatate [Tessalon Perle*] 100 mg PO TID PRN 7 Days #20 cap 02/14/23 New Medications: RX: Benzonatate [Tessalon Perle*] 100 mg PO TID PRN 7 Days #20 cap PRN Reason: Cough RX: Azithromycin Tab [Zithromax*] 250 mg PO DAILY 5 Days #5 tab Physician Discharge Instructions: 1. Please call and schedule a follow-up appointment with your PCP in 3-5 days - You were found to have a mild anemia. Please discuss this with your PCP - Please have your PCP repeat a chest x-ray in 3-4 weeks to make sure your pneumonia has fully healed - Please consider receiving the hepatitis B vaccine as an outpatient 2. Please call and schedule a follow-up appointment with Gastroenterology (Dr. Chambers) in 5-7 days - Please have him follow-up on your elevated liver enzymes Diet: AHA Activity: Ad kylah Followup: Eric Chambers MD [ASSOCIATE-ACTIVE - CAN ADMIT] - Time spent managing pt's care (in minutes): 25
[2023-02-14] MEDS ORDERED: POTASSIUM 25 MEQ EFFERV TAB PO ONE (09:00)
[2023-02-14] MEDS ORDERED: PANTOPRAZOLE 40 MG INJ IVP SCH (09:00)
--- NOTE | 2023-02-14 09:00 | P.PN ---
Date of Service: 02/14/23 Chief Complaint: SOB, fever Subjective: Improving. Off of supplemental O2. Afebrile. Reports feeling "much better" Plan for d/c home and finish oral antibiotics. Physical Examination Temp Pulse Resp BP Pulse Ox 97.4 F 82 18 128/74 98 02/14/23 08:00 02/14/23 08:00 02/14/23 08:00 02/14/23 08:00 02/14/23 08:00 General: Alert, In no apparent distress, Oriented x3 HEENT: Atraumatic, Normocephalic Neck: Supple, JVD not distended Respiratory: Clear to auscultation bilaterally, Normal air movement, breathing comfortably on room air. Cardiovascular: No edema, Normal pulses, Regular rate/rhythm Gastrointestinal: Normal bowel sounds, Soft and benign, No tenderness Musculoskeletal: No clubbing, No swelling Integumentary: No rashes, No breakdown Neurological: Normal gait, Normal speech, Normal tone, Normal affect Laboratory Data - Reviewed Microbiology Data - Reviewed Imagings Data: - CT abdomen 02/11: "Moderate splenomegaly" - Liver ultrasound 02/12: "Diffuse fatty liver is present. No pathologic biliary dilatation. Cholelithiasis. Mild splenomegaly." Medication List: Reviewed Assessment and Plan Problem List Influenza B Atypical Pneumonia Leukopenia Thrombocytopenia, resolved Influenza B Atypical Pneumonia - On Tamiflu - On Azithromycin and Ceftriaxone (started 02/12) - Pulmonology on case - XR Chest 02/11: "The lungs appear clear of acute infiltrate. The heart is normal size. No acute abnormalities displayed." - CTA Chest 02/11: "Negative for a pulmonary embolism. Mild to moderate right and mild left tree-in-bud and ground-glass opacities may indicate a viral or atypical pneumonia." Patient has been experiencing high fevers for the past 7+ days. Patient reports temps up to 104 at home and was taking large doses of tylenol to reduce fever. LFTs trending down. Originally presented to ED with leukopenia WBC 1.4 and thrombocytopenia plt 99. - Tmax 100.5 F within the past 24 hours. - Agreeable to run viral panel including HIV, CMV, hepatitis. Pending. - Blood cultures 02/11: No growth to date - Nasal swab pending - Leukopenia (WBC 3.5) Recommendations - Influenza B: Continue Tamiflu x 5 days (started 02/11) - Atypical pneumonia: Switch to Azithromycin PO upon discharge. Continue for 7 days (started 02/12) - Maintain adequate nutrition and hydration ID will follow patient as needed. Case discussed with Isabelle Kovacs
== END 2023-02-14 10:46 | disposition home or self-care (01) | DRG 871 ==
LOC: ER 13:42 → ERHOLD 19:12 → 2ND 19:32
PROVIDERS: ADMIT Internal Medicine; ATTEND Internal Medicine
DX: A41.89 Other specified sepsis (principal); J10.00 Influenza due to other identified influenza virus with unspecified type of pneumonia; J96.01 Acute respiratory failure with hypoxia; R65.20 Severe sepsis without septic shock; D69.6 Thrombocytopenia, unspecified; D64.9 Anemia, unspecified; K75.81 Nonalcoholic steatohepatitis (NASH); D72.819 Decreased white blood cell count, unspecified; K80.20 Calculus of gallbladder without cholecystitis without obstruction; T39.1X5A Adverse effect of 4-Aminophenol derivatives, initial encounter; R16.1 Splenomegaly, not elsewhere classified; R79.89 Other specified abnormal findings of blood chemistry; Z79.899 Other long term (current) drug therapy
CPT/HCPCS: 36415; 71045; 71275; 74177; 76705; 80053; 80143; 80202; 82248; 83605; 84132; 84145; 85025; 85610; 85730; 86308; 86644; 86704; 86705; 86706; 86708; 86709; 86803; 87040; 87070; 87340; 87389; 87535; 87538; 87811; 92610; 93005; 93306; 94640; 99285; C9113; J0132; J0696; J1650; J2405; J7030; J7040; J7050; J7060; J7120; J7613; J7644; Q9967